=== PATIENT | male | born 1965 | race Caucasian/White ===

== ENCOUNTER 2022-01-13 06:10 | Day surgery (SDC) | payer OTHER, BC ==
[2022-01-08 11:59] VITALS: BMI 29.1
[2022-01-13] MEDS ORDERED: PROPOFOL 20 ML ONE ×4 (06:58→08:02)
[2022-01-13] MEDS ORDERED: ONDANSETRON 4 MG/2 ML VIAL ONE (06:58)
[2022-01-13] MEDS ORDERED: DEXAMETHASONE SOD PHOSPHATE 4 MG/1 ML VIAL ONE (06:58)
[2022-01-13] MEDS ORDERED: SUCCINYLCHOLINE CHLORIDE 200 MG/10 ML SYRINGE ONE (06:58)
[2022-01-13] MEDS ORDERED: MIDAZOLAM HCL 2 MG/2 ML SINGLE DOSE VIAL ONE (06:59)
[2022-01-13] MEDS ORDERED: LIDOCAINE HCL 2% (20ML MULTI-DOSE VIAL) ONE (07:21)
[2022-01-13] MEDS ORDERED: BUPIVACAINE HCL 100 ML ONE (07:21)
[2022-01-13] MEDS ORDERED: oxyCODONE HCL 5 MG TABLET ONE (09:17)
[2022-01-13] MEDS ORDERED: oxyCODONE HCL 5 MG TABLET PO PRN ×2 (09:50)
[2022-01-13 10:02] VITALS: BP 125/80; PULSE 75; TEMP 97.8
== END 2022-01-13 10:02 | disposition home or self-care (01) ==
LOC: FASU 06:10
PROVIDERS: ATTEND Podiatrist
PROC: 0QSN04Z Reposition Right Metatarsal with Internal Fixation Device, Open Approach (ICD-10-PCS; principal; 2022-01-13 07:54)
DX: M20.21 Hallux rigidus, right foot (principal)
CPT/HCPCS: 73630-TC-RT-FY; 88304-TC; 88311-TC

== ENCOUNTER 2023-01-14 11:45 | Emergency (ER) | payer OTHER, BC ==
[2023-01-14 12:02] VITALS: BP 159/106; PULSE 76; RESP 18; TEMP 98.4; BMI 34.5
[2023-01-14] MEDS: ALBUTEROL SO4 2.5/IPRATROPIUM 0.5 INH SOL 3 ML VIAL.NEB. NEB SCH ×4 (12:35→13:22)
[2023-01-14] MEDS ORDERED: ALBUTEROL SO4 2.5/IPRATROPIUM 0.5 INH SOL 3 ML VIAL.NEB. NEB ONE (12:43)
[2023-01-14] MEDS ORDERED: predniSONE 20 MG TABLET (UD) PO ONE (13:10)
[2023-01-14] MEDS ORDERED: predniSONE 20 MG TABLET (UD) ONE (13:12)
== END 2023-01-14 13:41 | disposition home or self-care (01) ==
LOC: FER 11:45
PROC: 3E0F7GC Introduction of Other Therapeutic Substance into Respiratory Tract, Via Natural or Artificial Opening (ICD-10-PCS; principal; 2023-01-14)
DX: R05.1 Acute cough (principal); R06.2 Wheezing; Z20.822 Contact with and (suspected) exposure to COVID-19
CPT/HCPCS: 0241U-QW; 70450-TC; 71046-TC-FY; 99285-25